=== PATIENT | female | born 1930 | race Caucasian/White ===

== ENCOUNTER 2018-09-01 07:55 | Day surgery (SDC) | payer MEDICARE, OTHER ==
[~2018-09-01] VITALS: Ht 167.6 cm; Wt 51.0 kg
[2018-09-01 08:42] VITALS: BP 159/89
[2018-09-01] MEDS ORDERED: CARV12.52 PO (09:15)
[2018-09-01] MEDS ORDERED: AMLO10TA6 PO (09:15)
[2018-09-01] MEDS ORDERED: EMBREL PO (09:15)
[2018-09-01] MEDS ORDERED: DENO60DI INJ (09:15)
[2018-09-01] MEDS ORDERED: LEVO75TA PO (09:15)
[2018-09-01] MEDS ORDERED: LISI-170 PO (09:15)
[2018-09-01] MEDS ORDERED: PRAV10TA2 PO (09:15)
[2018-09-01] MEDS ORDERED: VITAMINS (09:15)
[2018-09-01] MEDS ORDERED: ASPI-515 PO (09:15)
[2018-09-01] MEDS ORDERED: FENTANYL PF 250 MCG/5ML ONE (09:19)
[2018-09-01] MEDS ORDERED: PROPOFOL 50 ML ONE (09:19)
[2018-09-01] MEDS ORDERED: BALANCED SALT OPHTH IRRIG SOLN 18ML ONE (09:19)
[2018-09-01] MEDS ORDERED: BACITRACIN/POLYMIXIN B SULFATE OINT 14 GM ONE (09:19)
[2018-09-01] MEDS ORDERED: CEFAZOLIN 1,000 MG ONE (09:30)
[2018-09-01] MEDS ORDERED: BUPIVACAINE 0.25% ONE (09:49)
[2018-09-01] MEDS ORDERED: EPINEPHRINE 1 MG/ML, 1ML ONE (09:49)
[2018-09-01] MEDS ORDERED: EPHEDRINE 50 MG/ML, 1ML ONE (10:43)
[2018-09-01] MEDS ORDERED: GLYCOPYRROLATE 0.4 MG/2 ML, 2ML ONE (10:45)
[2018-09-01] MEDS ORDERED: MORPHINE SULFATE 4 MG/ML, 1ML IVPush PRN (11:00)
[2018-09-01] MEDS ORDERED: EPHEDRINE 50 MG/ML, 1ML IM PRN (11:00)
[2018-09-01] MEDS ORDERED: EPHEDRINE 50 MG/ML, 1ML IVPush PRN (11:00)
[2018-09-01] MEDS ORDERED: EPHEDRINE 50 MG/ML, 1ML IVPush ONE (11:00)
[2018-09-01] MEDS ORDERED: hydrALAzine 20 MG/ML, 1ML IV PRN (11:00)
[2018-09-01] MEDS ORDERED: MIDAZOLAM 1 MG/ML, 2ML IV PRN (11:00)
[2018-09-01] MEDS ORDERED: OXYcodone 5 MG/5 ML ORAL.SOL UDC PO PRN (11:00)
[2018-09-01] MEDS ORDERED: ONDANSETRON ODT 8 MG PO PRN (11:00)
[2018-09-01] MEDS ORDERED: FENTANYL PF 100 MCG/2ML IV PRN (11:00)
== END 2018-09-01 12:45 | disposition home or self-care (01) ==
LOC: OUT 07:55
PROVIDERS: ATTEND Plastic Surgery
DX: H02.403 Unspecified ptosis of bilateral eyelids (principal); I10 Essential (primary) hypertension; Z88.1 Allergy status to other antibiotic agents; Z88.8 Allergy status to other drugs, medicaments and biological substances
CPT/HCPCS: 67903; J0171; J0690; J2704; J3010; J3490